=== PATIENT | male | born 1940 | race Caucasian/White ===

== ENCOUNTER 2017-12-29 04:55 | Outpatient (CLI) | payer MEDICARE | END 2017-12-29 23:59 | disposition home or self-care (01) | LOC: DIABETIC 04:55 | PROVIDERS: ATTEND Specialist | DX: E11.9 Type 2 diabetes mellitus without complications (principal) | CPT/HCPCS: G0108 ==

== ENCOUNTER 2018-10-09 12:49 | Outpatient (CLI) | payer MEDICARE | END 2018-10-09 23:59 | disposition home or self-care (01) | LOC: RAD 12:49 | PROVIDERS: ATTEND Internal Medicine Cardiovascular Disease | DX: M51.27 Other intervertebral disc displacement, lumbosacral region (principal); M62.81 Muscle weakness (generalized) | CPT/HCPCS: 72148 ==

== ENCOUNTER 2021-07-02 07:58 | Day surgery (SDC) | payer MEDICARE ==
[~2021-07-02] VITALS: Ht 177.8 cm; Wt 101.1 kg
[2021-07-02] VITALS (8 sets, daily range): BP systolic 120–151; BP diastolic 66–86
[2021-07-02] MEDS ORDERED: AMLO5TAB16 PO (08:44)
[2021-07-02] MEDS ORDERED: LISI10TA27 PO (08:44)
[2021-07-02] MEDS ORDERED: FLEC100T35 PO (08:44)
[2021-07-02] MEDS ORDERED: ISOS30TA84 PO (08:44)
[2021-07-02] MEDS ORDERED: IMIP25TA7 (08:44)
[2021-07-02] MEDS ORDERED: NOVLG SUBCUT (08:44)
[2021-07-02] MEDS ORDERED: DABI150C PO (08:44)
[2021-07-02] MEDS ORDERED: FURO20TA4 PO (08:44)
[2021-07-02] MEDS ORDERED: ATOR40TA72 PO (08:44)
[2021-07-02] MEDS ORDERED: LEVO100T9 (08:44)
[2021-07-02] MEDS ORDERED: LATA2.5D14 (08:44)
[2021-07-02] MEDS ORDERED: ALBU18HF2 (08:44)
[2021-07-02] MEDS ORDERED: INSU300I SUBCUT (08:44)
[2021-07-02] MEDS ORDERED: normal saline 1,000 ML IV SCH (08:45)
[2021-07-02] MEDS ORDERED: diphenhydrAMINE 25mg capsule PO PRN (08:45)
[2021-07-02] MEDS ORDERED: sulfamethoxazole (08:46)
[2021-07-02] MEDS ORDERED: BIMA5DRO4 (08:46)
[2021-07-02 09:08] LABS: ALBUMIN 3.4 G/DL (3.4-5.0); ANION GAP 7 (8-16); BLOOD UREA NITROGEN 20 MG/DL (7-18); BUN/CREATININE RATIO 16.4 (5.4-32.0); CALCIUM 8.6 MG/DL (8.5-10.1); CHLORIDE 108 MMOL/L (99-107); CREATININE 1.22 MG/DL (0.60-1.10); GLUCOSE 86 MG/DL (70-104); MAGNESIUM 2.1 MG/DL (1.5-2.4); POTASSIUM 3.9 MMOL/L (3.5-5.1); SODIUM 144 MMOL/L (135-145); TOTAL CARBON DIOXIDE 29.2 MMOL/L (24-32); eGFR 57 ML/MIN
[2021-07-02 09:17] LABS: BASOPHILS # (AUTO) 0.1 X10'3 (0-0.2); EOSINOPHILS # (AUTO) 0.3 X10'3 (0-0.9); EOSINOPHILS % (AUTO) 4.6 % (0-6); HEMATOCRIT 37.6 % (42.0-52.0); HEMOGLOBIN 12.8 g/dl (14.0-17.9); LYMPHOCYTES # (AUTO) 1.2 X10'3 (1.1-4.8); LYMPHOCYTES % (AUTO) 20.8 % (21-51); MEAN CORPUSCULAR HEMOGLOBIN 33.8 PG (27.0-31.0); MEAN CORPUSCULAR VOLUME 99.2 FL (78-98); MEAN PLATELET VOLUME 8.2 FL (7.4-10.4); MONOCYTES # (AUTO) 0.6 X10'3 (0-0.9); MONOCYTES % (AUTO) 10.9 % (2-12); NEUTROPHILS # (AUTO) 3.6 X10'3 (1.8-7.7); NEUTROPHILS % (AUTO) 62.7 % (42-75); PLATELET COUNT 153 X10'3 (140-440); RED BLOOD COUNT 3.79 X10'6 (4.70-6.10); RED CELL DISTRIBUTION WIDTH 13.9 % (11.5-14.5); WHITE BLOOD COUNT 5.8 X10'3 (4.5-11.0)
[2021-07-02] MEDS ORDERED: heparin 1,000unit/ml 10ml vial 10 ML ONE ×2 (09:47→12:38)
[2021-07-02] MEDS ORDERED: iohexol 350 MG/ML 50ML vial IV ONE ×3 (09:47→12:42)
[2021-07-02] MEDS ORDERED: LIDOcaine 1% (10mg/ml)w/preservative injection 20ml MDV ONE (09:47)
[2021-07-02] MEDS ORDERED: fentaNYL/PF 50MCG/1 ML 2ML syringe ONE (09:47)
[2021-07-02] MEDS ORDERED: iohexol 350MG/ML 100ml bottle IV ONE ×2 (09:47→11:40)
[2021-07-02] MEDS ORDERED: midazolam 1 mg/ML 2ml injection ONE (09:47)
[2021-07-02] MEDS ORDERED: verapamil 2.5 mg/ml inj IV ONE (10:50)
[2021-07-02] MEDS ORDERED: nitroGLYCERIN-Tridil 50MG/D5W 250 ML IV ONE (10:50)
[2021-07-02] MEDS ORDERED: ondansetron/PF 4mg/2ml inj ONE (12:14)
[2021-07-02] MEDS ORDERED: ticagrelor 90mg tablet ONE (12:50)
[2021-07-02] MEDS ORDERED: HYDROcodone/acetaminophen 5mg/325mg tablet PO PRN (13:25)
[2021-07-02] MEDS ORDERED: ondansetron/PF 4mg/2ml inj IV PRN (13:25)
[2021-07-02] MEDS ORDERED: HYDROcodone/acetaminophen 10/325mg tab PO PRN (13:25)
[2021-07-02] MEDS ORDERED: proCHLORperazine 10 MG/2 ml inj IV PRN (13:25)
== END 2021-07-02 16:35 | disposition home or self-care (01) ==
LOC: SSTAY O 07:58
PROVIDERS: ATTEND Internal Medicine Cardiovascular Disease
DX: R94.39 Abnormal result of other cardiovascular function study (principal); I25.10 Atherosclerotic heart disease of native coronary artery without angina pectoris; E11.9 Type 2 diabetes mellitus without complications; I48.91 Unspecified atrial fibrillation; E78.5 Hyperlipidemia, unspecified; I10 Essential (primary) hypertension; E03.9 Hypothyroidism, unspecified; Z88.8 Allergy status to other drugs, medicaments and biological substances; Z95.5 Presence of coronary angioplasty implant and graft; Z79.01 Long term (current) use of anticoagulants; Z79.899 Other long term (current) drug therapy; Z79.4 Long term (current) use of insulin; Z85.038 Personal history of other malignant neoplasm of large intestine; Z98.890 Other specified postprocedural states; Z82.49 Family history of ischemic heart disease and other diseases of the circulatory system
CPT/HCPCS: 36415; 80048; 83735; 85025; 85610; 93005; 93458; 99152; 99153; C1725; C1751; C1769; C1874; C1894; C9600; C9601; J1644; J2001; J2250; J2405; J3010; J7030; Q0163; Q9967; A4620; A5120; A6258; J3490

== ENCOUNTER 2022-01-07 11:00 | Day surgery (SDC) | payer MEDICARE ==
[~2022-01-07] VITALS: Ht 177.8 cm; Wt 99.5 kg
[2022-01-07] VITALS (9 sets, daily range): BP systolic 100–159; BP diastolic 63–79
[~2022-01-07 11:00] MED LIST: ALBU18HF2; AMLO5TAB16 PO; ATOR40TA72 PO; BIMA5DRO4; DABI150C PO; FLEC100T35 PO; FURO20TA4 PO; IMIP25TA7; INSU300I SUBCUT; ISOS30TA84 PO; LATA2.5D14; LEVO100T9; LISI10TA27 PO; NOVLG SUBCUT; sulfamethoxazole
[2022-01-07] MEDS ORDERED: normal saline 1,000 ML IV SCH (11:35)
[2022-01-07] MEDS ORDERED: diphenhydrAMINE 25mg capsule PO PRN (11:35)
[2022-01-07] MEDS ORDERED: ATOR10TA87 PO (11:50)
[2022-01-07] MEDS ORDERED: dextrose 50%-water 50ml dispensing syringe IV ONE (11:54)
[2022-01-07 11:59] LABS: BASOPHILS % (AUTO) 0.7 % (0-1); EOSINOPHILS # (AUTO) 0.3 X10'3 (0-0.9); EOSINOPHILS % (AUTO) 4.9 % (0-6); HEMATOCRIT 46.3 % (42.0-52.0); HEMOGLOBIN 15.5 g/dl (14.0-17.9); LYMPHOCYTES # (AUTO) 1.4 X10'3 (1.1-4.8); MEAN CORPUSCULAR HEMOGLOBIN 33.1 PG (27.0-31.0); MEAN CORPUSCULAR HGB CONC 33.5 g/dL (33.0-36.5); MEAN CORPUSCULAR VOLUME 98.6 FL (78-98); MEAN PLATELET VOLUME 7.5 FL (7.4-10.4); MONOCYTES # (AUTO) 0.7 X10'3 (0-0.9); MONOCYTES % (AUTO) 10.8 % (2-12); NEUTROPHILS # (AUTO) 3.8 X10'3 (1.8-7.7); NEUTROPHILS % (AUTO) 60.6 % (42-75); PLATELET COUNT 178 X10'3 (140-440); RED CELL DISTRIBUTION WIDTH 15.1 % (11.5-14.5); WHITE BLOOD COUNT 6.2 X10'3 (4.5-11.0)
[2022-01-07 12:08] LABS: ANION GAP 10 (8-16); BLOOD UREA NITROGEN 24 MG/DL (7-18); BUN/CREATININE RATIO 18.2 (5.4-32.0); CALCIUM 9.3 MG/DL (8.5-10.1); CHLORIDE 103 MMOL/L (99-107); CREATININE 1.32 MG/DL (0.60-1.10); GLUCOSE 62 MG/DL (70-104); MAGNESIUM 2.4 MG/DL (1.5-2.4); POTASSIUM 4.1 MMOL/L (3.5-5.1); SODIUM 142 MMOL/L (135-145); TOTAL CARBON DIOXIDE 29.1 MMOL/L (24-32); eGFR 52 ML/MIN
[2022-01-07] MEDS ORDERED: midazolam 1 mg/ML 2ml injection ONE (12:52)
[2022-01-07] MEDS ORDERED: LIDOCAINE 1% w/preservative (10 MG/ML) inj. 10mL VIAL ONE (12:52)
[2022-01-07] MEDS ORDERED: fentaNYL/PF 50MCG/1 ML 2ML syringe ONE (12:52)
[2022-01-07] MEDS ORDERED: iohexol 350 MG/ML 50ML vial IV ONE ×2 (12:53→14:24)
[2022-01-07] MEDS ORDERED: iohexol 350MG/ML 100ml bottle IV ONE (12:53)
[2022-01-07] MEDS ORDERED: heparin 1,000unit/ml 10ml vial 10 ML ONE (14:10)
[2022-01-07] MEDS ORDERED: proCHLORperazine 10 MG/2 ml inj IV PRN (15:40)
[2022-01-07] MEDS ORDERED: HYDROcodone/acetaminophen 5mg/325mg tablet PO PRN (15:40)
[2022-01-07] MEDS ORDERED: ondansetron/PF 4mg/2ml inj IV PRN (15:40)
[2022-01-07] MEDS ORDERED: acetaminophen 325mg tablet PO PRN (15:40)
[2022-01-07] MEDS ORDERED: HYDROcodone/acetaminophen 10/325mg tab PO PRN (15:40)
== END 2022-01-07 18:20 | disposition home or self-care (01) ==
LOC: SSTAY O 11:00
PROVIDERS: ATTEND Internal Medicine Cardiovascular Disease
DX: R07.89 Other chest pain (principal); I25.10 Atherosclerotic heart disease of native coronary artery without angina pectoris; I48.91 Unspecified atrial fibrillation; E11.9 Type 2 diabetes mellitus without complications; I10 Essential (primary) hypertension; E03.9 Hypothyroidism, unspecified; E78.5 Hyperlipidemia, unspecified; Z95.5 Presence of coronary angioplasty implant and graft; Z95.0 Presence of cardiac pacemaker; Z79.01 Long term (current) use of anticoagulants; Z85.038 Personal history of other malignant neoplasm of large intestine; Z79.4 Long term (current) use of insulin; Z79.899 Other long term (current) drug therapy; Z98.890 Other specified postprocedural states; Z88.8 Allergy status to other drugs, medicaments and biological substances
CPT/HCPCS: 36415; 80048; 82948; 83735; 85025; 85610; 93458; 99152; 99153; C1751; C1760; C1769; C1894; J1644; J2250; J3010; J3490; Q0163; Q9967; A4620; A6258

== ENCOUNTER 2022-10-21 08:36 | Day surgery (SDC) | payer MEDICARE ==
[2022-10-07 12:22] LABS: BASOPHILS # (AUTO) 0.1 X10'3 (0-0.2); BASOPHILS % (AUTO) 1.2 % (0-1); EOSINOPHILS # (AUTO) 0.5 X10'3 (0-0.9); EOSINOPHILS % (AUTO) 7.1 % (0-6); LYMPHOCYTES # (AUTO) 1.4 X10'3 (1.1-4.8); MEAN CORPUSCULAR HEMOGLOBIN 31.9 PG (27.0-31.0); MEAN CORPUSCULAR HGB CONC 32.8 g/dL (33.0-36.5); MEAN CORPUSCULAR VOLUME 97.2 FL (78-98); MEAN PLATELET VOLUME 7.9 FL (7.4-10.4); MONOCYTES # (AUTO) 0.7 X10'3 (0-0.9); MONOCYTES % (AUTO) 10.5 % (2-12); NEUTROPHILS # (AUTO) 3.9 X10'3 (1.8-7.7); NEUTROPHILS % (AUTO) 60.2 % (42-75); PRE OP HEMATOCRIT 47.1 % (42.0-52.0); PRE OP HEMOGLOBIN 15.4 g/dL (14.0-17.9); PRE OP PLATELET COUNT 151 X10'3 (140-440); RED BLOOD COUNT 4.85 X10'6 (4.70-6.10); RED CELL DISTRIBUTION WIDTH 15.7 % (11.5-14.5)
[2022-10-07 12:44] LABS: ALBUMIN 3.8 G/DL (3.4-5.0); ALBUMIN/GLOBULIN RATIO 1.2 (1.1-1.5); ALKALINE PHOSPHATASE 116 IU/L (46-116); BLOOD UREA NITROGEN 11 MG/DL (7-18); PRE OP ALT 31 U/L (30-65); PRE OP AST 31 U/L (10-37); PRE OP BILIRUB, TOTAL 1.8 MG/DL (0.0-1.0); PRE OP GLUCOSE 102 MG/DL (70-104); PRE OP POTASSIUM 4.1 MMOL/L (3.4-5.1); PRE OP SODIUM 140 MMOL/L (135-145); TOTAL PROTEIN 7.1 G/DL (6.4-8.2); eGFR 63 ML/MIN
[2022-10-07 14:16] LABS: CHLORIDE 104 MMOL/L (99-107); PRE OP ANION GAP 4 (8-16)
[2022-10-21] VITALS (12 sets, daily range): BP systolic 146–175; BP diastolic 75–105
[~2022-10-21] VITALS: Ht 177.8 cm; Wt 99.4 kg
[~2022-10-21 08:36] MED LIST changes: -ALBU18HF2; +ATOR10TA87 PO; -ATOR40TA72 PO; -BIMA5DRO4; +BUPIVAcaine/PF 5 mg/ml 10ml ONE; +CLOP75TA34 PO; +DOCUMENT DATE & TIME OF BETA-BLOCKER PO ONE; -IMIP25TA7; -LATA2.5D14; +PROP10TA10 PO; +ceFAZolin inj. 2,000 MG in dextrose 5%-water 100 ML IV ONE; +famotidine 20mg tablet PO ONE; +ringers solution, lacted 1,000 ML IV SCH; -sulfamethoxazole
[2022-10-21] MEDS ORDERED: ondansetron/PF 4mg/2ml inj IV PRN (09:55)
[2022-10-21] MEDS ORDERED: meperidine/PF 25mg/ml syringe IV PRN ×3 (09:55)
[2022-10-21] MEDS ORDERED: ringers solution, lacted 1,000 ML IV SCH (09:55)
[2022-10-21] MEDS ORDERED: labetalol 20mg/4ml (5mg/ml) syringe IV PRN (09:55)
[2022-10-21] MEDS ORDERED: acetaminophen 1,000mg/100ml IV 100 ML IV PRN (09:55)
[2022-10-21] MEDS ORDERED: proCHLORperazine 10 MG/2 ml inj IV PRN (09:55)
[2022-10-21] MEDS ORDERED: morphine 2 MG/ML inj. syringe IV PRN (09:55)
[2022-10-21] MEDS ORDERED: morphine 4 MG/ML inj SYRINge IV PRN (09:55)
[2022-10-21] MEDS ORDERED: LIDOcaine 0.5% (5mg/ml) 50ml vial ONE (09:56)
[2022-10-21] MEDS ORDERED: propofol 10mg/ml 20ml vial IV ONE (12:12)
[2022-10-21] MEDS ORDERED: fentaNYL/PF 50MCG/1 ML 2ML syringe ONE (12:22)
[2022-10-21] MEDS ORDERED: midazolam 1 mg/ML 2ml injection ONE (12:27)
[2022-10-21] MEDS ORDERED: BUPIVAcaine/PF 5 mg/ml 10ml IJ ONE (12:30)
--- NOTE | 2022-10-21 12:46 | NUR ---
Received from OR via [facility], accompanied by Anesthesiologist and report given by ARMANDO Anesthesiologist. PATIENT WAKING UP, NO S/S OF PAIN, V/S WNL, PIV 20G TO RIGHT FOREARM, LEFT WRIST DRESSING C/D/I. ICE AND ELEVATED LUE. Addendum: 10/21/22 at 1307 by Sony Weaevr RN Amended: Links added.
[2022-10-21] MEDS: hydrALAZINE 20mg/ml inj. IV PRN ×2 (13:02→13:26)
--- NOTE | 2022-10-21 13:46 | NUR ---
ALL DISCHARGE CRITERIA HAS BEEN MET. VSS, PAIN AT A TOLERABLE LEVEL, VOIDING AND ABLE TO SAFELY AMBULATE AND TRANSFER SELF. IV TAKEN OUT WITHOUT ANY COMPLICATIONS. ALL DISCHARGE INSTRUCTIONS COVERED WITH PATIENT AND ALL QUESTIONS ANSWERED. PATIENT TAKEN OUT VIA WHEELCHAIR WITH ALL BELONGINGS TO PERSONAL VEHICLE WHERE FAMILY DROVE PATIENT HOME. Addendum: 10/21/22 at 1352 by Sony Weaver RN Amended: Links added.
== END 2022-10-21 13:46 | disposition home or self-care (01) ==
LOC: PAS 08:36
PROVIDERS: ATTEND Orthopaedic Surgery Hand Surgery
DX: G56.02 Carpal tunnel syndrome, left upper limb (principal); I25.10 Atherosclerotic heart disease of native coronary artery without angina pectoris; E11.9 Type 2 diabetes mellitus without complications; I10 Essential (primary) hypertension; E78.5 Hyperlipidemia, unspecified; I48.91 Unspecified atrial fibrillation; Z88.8 Allergy status to other drugs, medicaments and biological substances; Z79.899 Other long term (current) drug therapy; Z79.4 Long term (current) use of insulin; Z98.890 Other specified postprocedural states; Z95.0 Presence of cardiac pacemaker; Z95.5 Presence of coronary angioplasty implant and graft; Z85.038 Personal history of other malignant neoplasm of large intestine; Z82.49 Family history of ischemic heart disease and other diseases of the circulatory system
CPT/HCPCS: 36415; 64721; 80053; 82948; 85025; J0360; J0690; J2250; J3010; J3490; J7030; J7060; J7120; J7121; Z7506; Z7512; A4215; A4618; J2704

== ENCOUNTER 2022-11-15 07:09 | Day surgery (SDC) | payer MEDICARE ==
[2022-11-07 10:07] LABS: BASOPHILS # (AUTO) 0.1 X10'3 (0-0.2); BASOPHILS % (AUTO) 1.3 % (0-1); EOSINOPHILS # (AUTO) 0.7 X10'3 (0-0.9); EOSINOPHILS % (AUTO) 11.7 % (0-6); LYMPHOCYTES # (AUTO) 1.2 X10'3 (1.1-4.8); LYMPHOCYTES % (AUTO) 19.4 % (21-51); MEAN CORPUSCULAR HEMOGLOBIN 32.5 PG (27.0-31.0); MEAN CORPUSCULAR HGB CONC 33.3 g/dL (33.0-36.5); MEAN CORPUSCULAR VOLUME 97.5 FL (78-98); MEAN PLATELET VOLUME 8.4 FL (7.4-10.4); MONOCYTES # (AUTO) 0.7 X10'3 (0-0.9); MONOCYTES % (AUTO) 11.3 % (2-12); NEUTROPHILS # (AUTO) 3.4 X10'3 (1.8-7.7); NEUTROPHILS % (AUTO) 56.3 % (42-75); PRE OP HEMATOCRIT 42.6 % (42.0-52.0); PRE OP HEMOGLOBIN 14.2 g/dL (14.0-17.9); PRE OP PLATELET COUNT 154 X10'3 (140-440); RED BLOOD COUNT 4.37 X10'6 (4.70-6.10); RED CELL DISTRIBUTION WIDTH 16.1 % (11.5-14.5)
[2022-11-07 10:22] LABS: ALBUMIN 3.9 G/DL (3.4-5.0); ALBUMIN/GLOBULIN RATIO 1.2 (1.1-1.5); ALKALINE PHOSPHATASE 117 IU/L (46-116); BLOOD UREA NITROGEN 20 MG/DL (7-18); BUN/CREATININE RATIO 18.7 (5.4-32.0); CALCIUM 8.9 MG/DL (8.5-10.1); CHLORIDE 104 MMOL/L (99-107); CREATININE 1.07 MG/DL (0.60-1.10); PRE OP ALT 24 U/L (30-65); PRE OP ANION GAP 6 (8-16); PRE OP AST 27 U/L (10-37); PRE OP BILIRUB, TOTAL 1.6 MG/DL (0.0-1.0); PRE OP GLUCOSE 154 MG/DL (70-104); PRE OP POTASSIUM 4.3 MMOL/L (3.4-5.1); PRE OP SODIUM 139 MMOL/L (135-145); TOTAL CARBON DIOXIDE 29.2 MMOL/L (24-32); TOTAL PROTEIN 7.1 G/DL (6.4-8.2); eGFR 66 ML/MIN
[~2022-11-15] VITALS: Ht 177.8 cm; Wt 99.4 kg
[2022-11-15] VITALS (7 sets, daily range): BP systolic 125–138; BP diastolic 65–79
[~2022-11-15 07:09] MED LIST changes: +BUPIVAcaine/PF 2.5 mg/ml (0.25%) 30ml vial ONE; -BUPIVAcaine/PF 5 mg/ml 10ml ONE; -ceFAZolin inj. 2,000 MG in dextrose 5%-water 100 ML IV ONE; +cefazolin 2gm/D5W 100mL 100 ML IV ONE
[2022-11-15] MEDS ORDERED: LIDOcaine 1% 30ml preserv. free vial ONE (07:31)
[2022-11-15] MEDS ORDERED: fentaNYL/PF 50MCG/1 ML 2ML syringe ONE (09:35)
[2022-11-15] MEDS ORDERED: midazolam 1 mg/ML 2ml injection ONE (09:35)
[2022-11-15] MEDS ORDERED: ketorolac trometh. 30mg/ml inj. ONE (09:36)
[2022-11-15] MEDS ORDERED: BUPIVAcaine/PF 2.5 mg/ml (0.25%) 30ml vial IJ ONE (10:02)
--- NOTE | 2022-11-15 10:05 | NUR ---
Received from OR via [facility], accompanied by Anesthesiologist DR KIDD and report given by Anesthesiologist. PT IS GROGGY BUT ANSWERING QUESTIONS APPROPRIATELY. PT PLACED IN BEDSIDE MONITOR, VSS. PT IS V-PACED WITH RATE OF 60. PT IS ON RA IN TOLERATING WELL WITH O2 SAT > 95%. PT HAS 22G PIV TO LT HAND WITH LR INFUSING ORDERED. PT HAS DRSG TO LEFT HAND/WRIST THAT IS CDI. PT IS ABLE TO MOVE ARM. WIGGLE FINGERS. PT DENIES PAIN AT THIS TIME. WILL CONTINUE TO ASSESS.
--- NOTE | 2022-11-15 11:17 | NUR ---
PATIENT A&OX4, DENIES PAIN, V/S WNL, SCD OFF, PIV D/C, RIGHT WRIST DRESSING CDI W/. ICE AND ELEVATED RUE. I HAVE REVIEWED D/C INSTRUCTIONS WITH PATIENT INSTRUCTIONS WITH PATIENT AND THEY HAVE VERBALIZED UNDERSTANDING. PATIENT D/C HOME WITH ALL BELONGINGS AND FAMILY TRANSPORTED PATIENT HOME.
== END 2022-11-15 11:08 | disposition home or self-care (01) ==
LOC: PAS 07:09
PROVIDERS: ATTEND Orthopaedic Surgery Hand Surgery
DX: G56.01 Carpal tunnel syndrome, right upper limb (principal); I10 Essential (primary) hypertension; I25.10 Atherosclerotic heart disease of native coronary artery without angina pectoris; I48.91 Unspecified atrial fibrillation; E11.9 Type 2 diabetes mellitus without complications; E03.9 Hypothyroidism, unspecified; Z95.0 Presence of cardiac pacemaker; Z85.038 Personal history of other malignant neoplasm of large intestine; E66.9 Obesity, unspecified; Z68.31 Body mass index [BMI] 31.0-31.9, adult; Z98.890 Other specified postprocedural states; Z79.899 Other long term (current) drug therapy; Z79.4 Long term (current) use of insulin; Z88.8 Allergy status to other drugs, medicaments and biological substances; Z82.49 Family history of ischemic heart disease and other diseases of the circulatory system
CPT/HCPCS: 36415; 64721; 80053; 85025; J1885; J2250; J3010; J3490; J7030; J7120; Z7506; Z7512; A4215